=== PATIENT | male | born 1985 ===

== ENCOUNTER 2018-01-05 11:30 | Day surgery (SDC) | payer OTHER ==
[~2018-01-05] VITALS: Ht 182.9 cm; Wt 93.0 kg
[2018-01-05] VITALS (8 sets, daily range): BP systolic 122–140; BP diastolic 72–87
[~2018-01-05 11:30] MED LIST: ACET1TAB12 PO; Cefazolin 2GM/100ML NS IVPB IV ONE; IBUP-1985 PO; famotidine 20mg tablet PO ONE; ringers solution, lacted 1,000 ML IV SCH
[2018-01-05] MEDS ORDERED: fentaNYL/PF 50MCG/1 ML 2ML syringe ONE (14:45)
[2018-01-05] MEDS ORDERED: propofol inj 20 ML IV ONE (14:45)
[2018-01-05] MEDS ORDERED: MIDAZolam 5mg/5ml vial ONE (14:45)
[2018-01-05] MEDS ORDERED: LIDOcaine 1%/PF (10mg/ml) 5ml vial ONE (14:46)
[2018-01-05] MEDS ORDERED: ceFAZolin 1000mg inj ONE (15:08)
[2018-01-05] MEDS ORDERED: BUPIVAcaine/PF 2.5mg/ml (0.25%) 10ml vial ONE (15:08)
[2018-01-05] MEDS ORDERED: ondansetron/PF 4mg/2ml inj ONE (15:44)
[2018-01-05] MEDS ORDERED: sevoflurane 250ml liquid IH ONE (15:44)
[2018-01-05] MEDS ORDERED: dexamethasone sod phosphate 4mg/ml inj. ONE (16:24)
[2018-01-05] MEDS ORDERED: ringers solution, lacted 1,000 ML IV SCH (17:33)
[2018-01-05] MEDS ORDERED: meperidine/PF 25mg/ml syringe IV PRN (17:35)
[2018-01-05] MEDS ORDERED: fentaNYL/PF 50MCG/1 ML 2ML syringe IV PRN (17:35)
[2018-01-05] MEDS ORDERED: ondansetron/PF 4mg/2ml inj IV PRN (17:35)
[2018-01-05] MEDS ORDERED: proCHLORperazine 10 MG/2 ml inj IV PRN (17:35)
[2018-01-05] MEDS ORDERED: HYDROmorphone inj. 0.5 MG/0.5 ML DISP.SYRIN IV PRN (17:35)
== END 2018-01-05 18:35 ==
LOC: PAS 11:30 → EEVIPCON 14:45 → PAS 18:35
PROVIDERS: ATTEND Orthopaedic Surgery
DX: S52.592A Other fractures of lower end of left radius, initial encounter for closed fracture (principal); S52.612A Displaced fracture of left ulna styloid process, initial encounter for closed fracture; Z87.891 Personal history of nicotine dependence; Z79.891 Long term (current) use of opiate analgesic; Z79.1 Long term (current) use of non-steroidal anti-inflammatories (NSAID); Z79.899 Other long term (current) drug therapy; X58.XXXA Exposure to other specified factors, initial encounter; Y93.89 Activity, other specified; Y92.89 Other specified places as the place of occurrence of the external cause; Y99.8 Other external cause status
CPT/HCPCS: 25609; 25652; A4565; A6449; C1713; J0690; J1100; J2001; J2250; J2405; J2704; J3010; J3490; J7120; A7000